=== PATIENT | female | born 1955 ===

== ENCOUNTER 2021-06-12 06:33 | Day surgery (SDC) | payer OTHER ==
[~2021-06-12 06:33] MED LIST: LEVOTHY PO
[2021-06-12] MEDS ORDERED: NEURONTIN300 MG PO (14:15)
[2021-06-12] MEDS ORDERED: ULTRAM50 MG PO (14:15)
== END 2021-06-12 19:30 | disposition home or self-care (01) ==
LOC: CIR.AMB 06:33
PROVIDERS: ATTEND Surgery
DX: K64.8 Other hemorrhoids (principal); Z20.822 Contact with and (suspected) exposure to COVID-19